=== PATIENT | male | born 1955 | race Caucasian/White ===

== ENCOUNTER 2017-05-21 06:42 | Day surgery (SDC) | payer BC ==
[2017-05-16 12:08] VITALS: BMI 27.9
[2017-05-21] MEDS ORDERED: LIDOCAINE HCL/PF 2% SDV 5ML VIAL ONE (07:08)
[2017-05-21] MEDS ORDERED: PROPOFOL 20 ML ONE ×2 (07:08)
[2017-05-21 09:14] VITALS: BP 112/74; PULSE 74; TEMP 98
== END 2017-05-21 09:25 | disposition home or self-care (01) ==
LOC: FASU-ENDO 06:42
PROVIDERS: ATTEND Internal Medicine Gastroenterology
PROC: 0DJD8ZZ Inspection of Lower Intestinal Tract, Via Natural or Artificial Opening Endoscopic (ICD-10-PCS; principal; 2017-05-21 08:16)
DX: Z12.11 Encounter for screening for malignant neoplasm of colon (principal)